=== PATIENT | male | born 1945 | race Caucasian/White ===

== ENCOUNTER 2017-05-11 08:15 | Observation (INO) | payer MEDICAID ==
--- NOTE | 2017-05-11 08:25 | Emergency Department Record ---
History of Present Illness - General Chief Complaint: Chest Pain Stated Complaint: CHEST PAIN Time Seen by Provider: 05/11/17 08:24 Source: Patient Mode of Arrival: Ambulatory Limitations: No limitations - History of Present Illness Initial Comments: The patient is here due to a 3 hour hx of L shoulder pain. The pain is sharp and aching at times. It is located in the anterior L shoulder and is not associated with nausea, NANDO, SOB, sweating or lightheadedness. The pain did wake the patient up at 5am today and did get minimally better with Advil. The patient states ROM of the L shoulder does improve the pain. He denies any recent illnesses, injuries, cough, fever, or trauma. MD Complaint: Other Onset/Timin -: Hour(s) Onset: Awoke with symptoms Pain Location: Other Pain Radiation: Other Severity: Moderate Severity scale (1-10): 7 Quality: Sharp Consistency: Constant Improves With: Nothing Worsens With: Nothing Treatment Prior to Arrival Comment:: Advil - Related Data Home Medications Medication Instructions Recorded Confirmed Last Taken Dutasteride [Avodart] 0.5 mg PO DAILY 05/29/14 05/11/17 06/07/14 Levothyroxine Sodium [Synthroid] 150 mcg PO DAILY 05/29/14 05/11/17 06/07/14 Pitavastatin Calcium [Livalo] 2 mg PO DAILY 05/29/14 05/11/17 06/07/14 RX: Aspirin Chewable 81 mg PO DAILY 05/29/14 05/11/17 06/07/14 Calcium Carb/Vitamin D3/Vit K1 2 each PO DAILY 05/11/17 05/11/17 Unknown [Citracal Soft Chew] Verapamil HCl [Verapamil ER] 240 mg PO DAILY 05/11/17 05/11/17 Unknown Allergies Allergy/AdvReac Type Severity Reaction Status Date / Time No Known Drug Allergies Allergy Verified 05/11/17 08:22 Travel Screening - Travel/Exposure Within Last 30 Days Have you traveled within the last 30 days?: No Review of Systems Constitutional: Denies: Chills, Fever Eyes: Denies: Eye discharge ENT: Denies: Congestion Respiratory: Denies: Cough, Dyspnea Past Medical History - SOCIAL HISTORY Smoking Status: Former smoker Alcohol Use: None Drug Use: None - RESPIRATORY Hx Respiratory Disorders: No - CARDIOVASCULAR Hx Cardio Disorders: Yes Hx Hypertension: Yes - NEURO Hx Neuro Disorders: No - GI Hx GI Disorders: Yes Hx of Polyps: Yes - Hx Genitourinary Disorders: Yes Hx Prostate Problems: Yes - ENDOCRINE Hx Endocrine Disorders: Yes Hx Thyroid Disease: Yes - MUSCULOSKELETAL Hx Musculoskeletal Disorders: No - PSYCH Hx Psych Problems: No - HEMATOLOGY/ONCOLOGY Hx Hematology/Oncology Disorders: No Family Medical History Any Significant Family History?: No Physical Exam - General General Appearance: Alert, Oriented x3, Cooperative, No acute distress - Head Head exam: Atraumatic, Normocephalic, Normal inspection - Eye Eye exam: Normal appearance, PERRL - Neck Neck exam: Normal inspection, Full ROM. negative: Tenderness - Respiratory Respiratory exam: Normal lung sounds bilaterally. negative: Respiratory distress - Cardiovascular Cardiovascular Exam: Regular rate, Normal rhythm, Systolic murmur (2/6 MELISSA) - GI/Abdominal GI/Abdominal exam: Soft, Normal bowel sounds. negative: Tenderness - Extremities Extremities exam: Normal inspection, Full ROM, Normal capillary refill, Tenderness (Palpation of the L anterior shoulder does reproduce his pain.). negative: Joint swelling - Neurological Neurological exam: Alert, Normal gait. negative: Abnormal gait, Motor sensory deficit - Psychiatric Psychiatric exam: negative: Anxious, Depressed Course Vital Signs 05/11/17 08:17 Temperature 97.5 F L Pulse Rate 75 Respiratory 20 Rate Blood Pressure 178/92 Pulse Ox 99 - Reevaluation(s) Reevaluation #1: The patient is doing better at this time. He denies any anterior shoulder pain and is resting comfortably. I did discuss the options with him and did recommend hospital admission due to his age and hx of congenital cardiac dz. The patient does agree to the plan. I also did discuss the case with Tiffany ARCHER) and she does accept the admission for Dr. Cesar. 05/11/17 09:42 Medical Decision Making - Data Complexity MDM Data: Labs Ordered and/or Reviewed, X-Ray Ordered and/or Reviewed, EKG Ordered and/or Reviewed - Lab Data Result diagrams: 05/11/17 08:25 05/11/17 08:25 - EKG Data -: EKG Interpreted by Me EKG: No Acute Changes (Possible old anteroseptal [place].) - Radiology Data Radiology results: Report reviewed (CXR: neg) Disposition Disposition: Admit Clinical Impression: Chest pain, atypical Disposition: Still a Patient at [facility] Decision to Admit: Admit from ER Decision to Admit Date: 05/11/17 Decision to Admit Time: :44 Accepting Physician: Tali Time Discussed w/Accepting Physician: :44 Condition: (2) Stable Instructions: Chest Pain (ED) Forms: Patient Portal Access Time of Disposition: : Quality - Quality Measures Quality Measures: N/A - Blood Pressure Screening View Details: Yes Blood Pressure Classification: Hypertensive Reading Systolic Measurement: 178 Diastolic Measurement: 92 Screening for High Blood Pressure: < Pre-Hypertensive BP, F/U Documented > [ [id number]] Pre-Hypertensive Follow-up Interventions: Follow-up with rescreen every year.
[2017-05-11] MEDS ORDERED: KETOROLAC 30 MG/ML VIAL IVP ONE (08:34)
[2017-05-11 08:39] LABS: BASO % 0.3 % (0-6); EOS % 1.5 % (0-6); GRAN % 63.3 % (47-80); HEMATOCRIT 46.5 % (42.0-52.0); HEMOGLOBIN 16.1 gm/dl (14.0-18.0); LYMPH % 26.1 % (16-45); MEAN CELL VOLUME 88.4 fl (81-97); MEAN CORPUSCULAR HEMOGLOBIN 30.6 pg (27-33); MEAN CORPUSCULAR HGB CONC 34.6 g/dl (32-36); MEAN PLATELET VOLUME 10.2 fl (7.4-10.4); MONO % 8.8 % (0-9); PLATELET COUNT 238 K/uL (130-400); RED BLOOD COUNT 5.26 M/uL (4.40-5.70); RED CELL DISTRIBUTION WIDTH 12.6 % (11.5-14.5); WHITE BLOOD COUNT W/O DIFF 11.7 K/uL (4.2-12.2)
[2017-05-11 08:53] LABS: ANION GAP 10.5 (7-16); BLOOD UREA NITROGEN 23 mg/dL (9-20); CARBON DIOXIDE 26.5 mmol/L (22-30); CREATINE PHOSPHOKINASE 100 U/L (55-170); CREATININE 1.3 mg/dL (0.66-1.25); EST GLOMERULAR FILTRATION RATE 58 ml/min; GLUCOSE,RANDOM 92 mg/dL (70-110)
[2017-05-11 09:05] LABS: TROPONIN I < 0.012 ng/mL (0.00-0.034)
[2017-05-11] MEDS ORDERED: HYDROCODONE/APAP 5/325MG TABLET PO ONE (09:10)
[2017-05-11] MEDS ORDERED: NITROGLYCERIN 0.4MG SL TABLET #25 BTL SL PRN (10:35)
[2017-05-11] MEDS: ASPIRIN 325 MG TAB ENTERIC-COATED PO SCH (11:58)
[2017-05-11] MEDS: DUTASTERIDE 0.5 MG PO SCH (11:59)
[2017-05-11] MEDS: PITAVASTATIN 2 MG PO SCH (11:59)
[2017-05-11] MEDS: VERAPAMIL HCL 240 MG TAB ER PO SCH (11:59)
[2017-05-11] MEDS: LEVOTHYROXINE SODIUM 150 MCG TABLET PO SCH (11:59)
[2017-05-11] MEDS ORDERED: HYDROCODONE/APAP 5/325MG TABLET PO PRN (13:09)
--- NOTE | 2017-05-11 13:11 | History & Physical ---
History of Present Illness - Date of Service Date of Service for History & Physical: 05/12/17 - History of Present Illness Admitting Diagnosis: 1. Atypical Chest Pain. History of Present Illness: 71 yo male admitted with left shoulder pain. PMHx of hypothyroidism, BPH, high BP, and high cholesterol. Patient experienced left shoulder pain around 5 am this morning. Patient states he woke up to go to the bathroom and noticed the pain. He took 2-3 OTC advil and went back to bed until 730. When patient woke back up, his left shoulder pain continued. Patient was brought to the ER by his . Located anteriorly. No radiation. Aggravated by nothing. Alleviated by Brohard in the ED. Upon arrival, 97.5, HR75, BP 178/92, RR 20, O2 99 RA. CBC/CMP relatively negative aside from elevated BUN of 23 and Cr of 1.3. D-dimer, CE negative. EKG: possible old anteroseptal [place]. CXR: negative. Toradol and Brohard given for left shoulder pain. Patient placed on telemetry and admitted for further cardiac work up. 05/11/17 11:00: Patients left shoulder pain resolved following Brohard. He denies any associated skin rash, SOB, fever, chills, diaphoresis, nausea, abdominal pain, change in bowel habits, cough, jaw or upper extremity pain. Patient reports h/o shingles to the left shoulder which caused similar pain, however he does not have a rash at this time. No recent hospitalization's or illness. denies family h/o cardiac disease. no previous h/o [place] or CVA. 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 He denies any changes to medications or recent travel. 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 States he lifted heavy water jugs during the day yesterday. Unsure if he slept wrong in his bed. PCP: Dr. Colunga 05/12/17: Patient up walking his room and the hallway. His should pain is present, however pain is well controlled with Brohard. He denies jaw/upper ext pain. No diaphoresis, sob, cough, fever, chill, n/v, abd pain. He admits to gas. Tolerating meals. Normal GI/ function. Patient very anxious to get home. Travel Screening - Travel/Exposure Within Last 30 Days Have you traveled within the last 30 days?: No - Travel/Exposure Within Last Year Have you traveled outside the [place] in the last year?: No - Additonal Travel Details Have you been exposed to anyone with a communicable illness?: No - Travel Symptoms Symptom Screening: None Review of Systems Constitutional: Denies: Chills, Fever, Weakness Eyes: Denies: Eye discharge ENT: Denies: Congestion Respiratory: Denies: Cough, Dyspnea, Wheezes Cardiovascular: Denies: Chest pain, Edema, Orthopnea, Palpitations Endocrine: Denies: Fatigue Gastrointestinal: Denies: Abdominal pain, Constipation, Diarrhea, Nausea, Vomiting Genitourinary: Denies: Dysuria, Hematuria Musculoskeletal: Denies: Back pain, Joint swelling Skin: Denies: Lesions, Rash Neurological: Denies: Abnormal gait, Headache, Vertigo, Weakness Past Medical History - SOCIAL HISTORY Smoking Status: Former smoker Alcohol Use: None Drug Use: None - RESPIRATORY Hx Respiratory Disorders: No - CARDIOVASCULAR Hx Cardio Disorders: Yes Hx Hypertension: Yes - NEURO Hx Neuro Disorders: No - GI Hx GI Disorders: Yes Hx of Polyps: Yes - Hx Genitourinary Disorders: Yes Hx Prostate Problems: Yes - ENDOCRINE Hx Endocrine Disorders: Yes Hx Thyroid Disease: Yes - MUSCULOSKELETAL Hx Musculoskeletal Disorders: No - PSYCH Hx Psych Problems: No - HEMATOLOGY/ONCOLOGY Hx Hematology/Oncology Disorders: No Family Medical History Any Significant Family History?: Yes Hx Resp Disorders: Mother H&P Meds/Allergies - Allergies Allergies: Allergies Allergy/AdvReac Type Severity Reaction Status Date / Time No Known Drug Allergies Allergy Verified 05/11/17 08:22 - Home Medications Home Medications Medication Instructions Recorded Confirmed Last Taken Aspirin Chewable 81 mg PO DAILY 05/29/14 05/11/17 06/07/14 Dutasteride [Avodart] 0.5 mg PO DAILY 05/29/14 05/11/17 06/07/14 Levothyroxine Sodium [Synthroid] 150 mcg PO DAILY 05/29/14 05/11/17 06/07/14 Pitavastatin Calcium [Livalo] 2 mg PO DAILY 05/29/14 05/11/17 06/07/14 Calcium Carb/Vitamin D3/Vit K1 2 each PO DAILY 07/16/17 07/16/17 Unknown [Citracal Soft Chew] Verapamil HCl [Verapamil ER] 240 mg PO DAILY 05/11/17 05/11/17 Unknown - Active Medications Active Medications: Current Medications Aspirin (Ecotrin (Ec)) 325 mg PO DAILY [facility] Last Admin: 05/11/17 11:58 Dose: 325 mg Levothyroxine Sodium (Synthroid) 150 mcg PO DAILYTHY [facility] Last Admin: 05/11/17 11:59 Dose: 150 mcg Nitroglycerin (Nitrostat 0.4mg) 0.4 mg SL Q5MIN PRN PRN Reason: CHEST PAIN Patient Own Med: (Dutasteride 0.5 Mg) 1 each PO DAILY [facility] Last Admin: 05/11/17 11:59 Dose: 1 each Patient Own Med: (Pitavastatin 2 Mg) 1 each PO DAILY [facility] Last Admin: 05/11/17 11:59 Dose: 1 each Verapamil HCl (Calan Sr) 240 mg PO DAILY [facility] Last Admin: 05/11/17 11:59 Dose: 240 mg Physical Exam - Vital Signs Vital Signs: Vital Signs - Last 24 Hrs Temp Pulse Pulse Resp BP BP Pulse Ox 05/11/17 10:42 73 16 05/11/17 10:35 18 150/83 98 05/11/17 10:07 97.8 F 75 16 135/81 96 - General General Appearance: Alert, Oriented x3, Cooperative, No acute distress Limitations: No limitations - Head Head exam: Atraumatic, Normocephalic, Normal inspection - Eye Eye exam: Normal appearance, PERRL - ENT ENT exam: Normal exam - Neck Neck exam: Normal inspection, Full ROM. negative: Tenderness - Respiratory Respiratory exam: Normal lung sounds bilaterally. negative: Respiratory distress - Cardiovascular Cardiovascular Exam: Regular rate, Normal rhythm, Systolic murmur (2/6 MELISSA) - GI/Abdominal GI/Abdominal exam: Soft, Normal bowel sounds. negative: Tenderness - Rectal Rectal exam: Deferred - exam: Deferred - Extremities Extremities exam: Normal inspection, Full ROM, Normal capillary refill, Tenderness (Palpation of the L anterior shoulder does reproduce his pain.). negative: Joint swelling - Neurological Neurological exam: Alert, Normal gait, Oriented X3. negative: Abnormal gait, Motor sensory deficit - Psychiatric Psychiatric exam: negative: Anxious, Depressed - Skin Distribution of rash: negative: RUE, LUE, RLE, LLE Description of rash: negative: Blisters, Erythematous Results - Labs Result Diagrams: 05/11/17 08:25 05/12/17 06:45 VTE H&P Assessment - Risk for VTE Risk for VTE: Yes Risk Level: Low Risk Assessment Date: 05/11/17 Risk Assessment Time: 11:00 VTE Orders Placed or Will Be Placed: Yes Plan - Detailed Diagnosis and Plan (1) Chest pain, atypical Current Visit: Yes Status: Acute Base Code: R07.89 - OTHER CHEST PAIN Comment: 05/12/17: MSK vs. pleuritic vs. cardiac vs. other? - EKG 05/11/17: suggests potential old anteroseptal infarct. EK05/12/17: T waves are more peaked. CXR negative. - CE negative x 3. Will obtain a fourth troponin. - L shoulder pain improved w/ PO Brohard - telemetry - VS Q2 x2, then Q4H - will get in touch with [facility] re EKG, patient's history and symptoms. (2) Renal insufficiency, mild Current Visit: Yes Status: Acute Base Code: N28.9 - DISORDER OF KIDNEY AND URETER, UNSPECIFIED Comment: 05/12/17: i suspect related to dehydration. renal function has now normalized. (3) Full code status Current Visit: Yes Status: Acute Base Code: Z78.9 - OTHER SPECIFIED HEALTH STATUS Comment: 05/12/17: pt is full code (4) DVT prophylaxis Current Visit: Yes Status: Acute Base Code: [id number] - Comment: 05/12/17: Lovenox 40 mg sq qd
[2017-05-11] MEDS: ACETAMINOPHEN 500 MG TABLET PO PRN ×2 (13:22→19:18)
[2017-05-11 15:22] LABS: CKMB 2.3 ug/L (0-6); TROPONIN I < 0.012 ng/mL (0.00-0.034)
[2017-05-11] MEDS ORDERED: TEMAZEPAM 15 MG CAPSULE PO PRN (18:22)
[2017-05-11 23:44] LABS: CKMB 1.8 ug/L (0-6)
[2017-05-11 23:46] LABS: TROPONIN I < 0.012 ng/mL (0.00-0.034)
[2017-05-12] MEDS: LEVOTHYROXINE SODIUM 150 MCG TABLET PO SCH (06:52)
[2017-05-12] MEDS: ACETAMINOPHEN 500 MG TABLET PO PRN (06:55)
[2017-05-12 07:09] LABS: ANION GAP 8.2 (7-16); BLOOD UREA NITROGEN 20 mg/dL (9-20); CARBON DIOXIDE 27.8 mmol/L (22-30); CREATININE 1.2 mg/dL (0.66-1.25); EST GLOMERULAR FILTRATION RATE > 60 ml/min; GLUCOSE,RANDOM 110 mg/dL (70-110)
--- NOTE | 2017-05-12 07:28 | RADIOLOGY REPORT ---
EXAM: CHEST, TWO VIEWS HISTORY: ACUTE LEFT SHOULDER PAIN. TECHNIQUE: Two views of the chest were obtained. Comparison: None. FINDINGS: Probable small calcified granuloma right mid lung. The lungs are clear. The cardiac silhouette, diaphragm, and osseous structures are unremarkable for age. IMPRESSION: NEGATIVE CHEST EXAMINATION. JOB NUMBER: [id number] MTDD
[2017-05-12] MEDS: ASPIRIN 325 MG TAB ENTERIC-COATED PO SCH (09:20)
[2017-05-12] MEDS: VERAPAMIL HCL 240 MG TAB ER PO SCH (09:21)
[2017-05-12] MEDS: DUTASTERIDE 0.5 MG PO SCH (09:22)
[2017-05-12] MEDS: PITAVASTATIN 2 MG PO SCH (09:22)
--- NOTE | 2017-05-12 11:09 | Discharge Summary ---
Providers Discharge Summary Date: 05/12/17 Date of admission: 05/11/17 09:56 Expected Date of Discharge: 05/12/17 Attending physician: NICKO CARRERA Primary care physician: YESSI GARCÍA D.O. Physical Exam - Vital Signs Vital Signs: Vital Signs - Last 24 Hrs Temp Pulse Pulse Resp BP Pulse Ox 05/12/17 09:00 97.6 F 68 18 136/68 95 05/12/17 08:06 70 16 05/12/17 05:30 97.6 F 64 18 132/71 96 05/12/17 00:00 99.0 F 72 18 122/71 95 05/11/17 21:00 69 16 05/11/17 20:00 97.9 F 62 18 124/66 95 05/11/17 16:31 98.5 F 65 18 131/77 96 05/11/17 12:35 98.0 F 72 18 123/71 98 - General General Appearance: Alert, Oriented x3, Cooperative, No acute distress Limitations: No limitations - Head Head exam: Atraumatic, Normocephalic, Normal inspection - Eye Eye exam: Normal appearance, PERRL - ENT ENT exam: Normal exam - Neck Neck exam: Normal inspection, Full ROM. negative: Tenderness - Respiratory Respiratory exam: Normal lung sounds bilaterally. negative: Respiratory distress - Cardiovascular Cardiovascular Exam: Regular rate, Normal rhythm, Systolic murmur (2/6 MELISSA) - GI/Abdominal GI/Abdominal exam: Soft, Normal bowel sounds. negative: Tenderness - Rectal Rectal exam: Deferred - exam: Deferred - Extremities Extremities exam: Normal inspection, Full ROM, Normal capillary refill, Tenderness (Palpation of the L anterior shoulder does reproduce his pain.). negative: Joint swelling - Neurological Neurological exam: Alert, Normal gait, Oriented X3. negative: Abnormal gait, Motor sensory deficit - Psychiatric Psychiatric exam: negative: Anxious, Depressed - Skin Distribution of rash: negative: RUE, LUE, RLE, LLE Description of rash: negative: Blisters, Erythematous Hospitalization - Hospitalization Admission Diagnosis: 1. Atypical Chest Pain. - Problem List/Discharge Diagnosis (1) Chest pain, atypical Current Visit: Yes Status: Acute Base Code: R07.89 - OTHER CHEST PAIN Comment: 05/12/17: MSK vs. pleuritic vs. cardiac vs. other? - EKG 05/11/17: suggests potential old anteroseptal infarct. EK05/12/17: T waves are more peaked. CXR negative. - CE negative x 4. - L shoulder pain reproducible on exam. improved w/ PO Delta - I spoke with Dr. Crouch re patient's EKG findings. Out patient stress test with Dr. Crouch has been set up for Friday as recommended. - Follow up with Dr. García FridayMay 13 at 330 - return to the ER re any SOB, CP, jaw or upper extremity pain, sweating, dizziness or lightheadedness. (2) Full code status Current Visit: Yes Status: Acute Base Code: Z78.9 - OTHER SPECIFIED HEALTH STATUS Comment: 05/12/17: pt remained full code - Hospitalization Course Disposition: Home, Self-Care Hospital Course: 71 yo male admitted with left shoulder pain. PMHx of hypothyroidism, BPH, high BP, and high cholesterol. Patient experienced left shoulder pain around 5 am this morning. Patient states he woke up to go to the bathroom and noticed the pain. He took 2-3 OTC advil and went back to bed until 730. When patient woke back up, his left shoulder pain continued. Patient was brought to the ER by his . Located anteriorly. No radiation. Aggravated by nothing. Alleviated by Delta in the ED. Upon arrival, 97.5, HR75, BP 178/92, RR 20, O2 99 RA. CBC/CMP relatively negative aside from elevated BUN of 23 and Cr of 1.3. D-dimer, CE negative. EKG: possible old anteroseptal [place]. CXR: negative. Toradol and Delta given for left shoulder pain. Patient placed on telemetry and admitted for further cardiac work up. 05/11/17 11:00: Patients left shoulder pain resolved following Delta. He denies any associated skin rash, SOB, fever, chills, diaphoresis, nausea, abdominal pain, change in bowel habits, cough, jaw or upper extremity pain. Patient reports h/o shingles to the left shoulder which caused similar pain, however he does not have a rash at this time. No recent hospitalization's or illness. denies family h/o cardiac disease. no previous h/o [place] or CVA. 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 He denies any changes to medications or recent travel. 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 States he lifted heavy water jugs during the day yesterday. Unsure if he slept wrong in his bed. PCP: Dr. García 05/12/17: Patient up walking his room and the hallway. His should pain is present, however pain is well controlled with Delta. He denies jaw/upper ext pain. No diaphoresis, sob, cough, fever, chill, n/v, abd pain. He admits to gas. Tolerating meals. Normal GI/ function. Patient very anxious to get home. Procedures: Cardiology Procedures 05/12/17 10:41 Stress EKG/STD Treadmill ONCE Condition at Discharge: (2) Stable Discharge Medications - Discharge Medications Home Medications: Ambulatory Orders Aspirin Chewable 81 mg PO DAILY 05/29/14 [Last Taken 06/07/14] Dutasteride [Avodart] 0.5 mg PO DAILY 05/29/14 [Last Taken 06/07/14] Levothyroxine Sodium [Synthroid] 150 mcg PO DAILY 05/29/14 [Last Taken 06/07/14] Pitavastatin Calcium [Livalo] 2 mg PO DAILY 05/29/14 [Last Taken 06/07/14] Calcium Carb/Vitamin D3/Vit K1 [Citracal Soft Chew] 2 each PO DAILY 05/11/17 [ Last Taken Unknown] Verapamil HCl [Verapamil ER] 240 mg PO DAILY 05/11/17 [Last Taken Unknown] Discharge Plan - Discharge Instructions Activity at Discharge: Other (rest until stress test/cardiology visit Friday ) Diet at Discharge: Other (cardiac diet) Instructions: Chest Pain (ED), Cardiac Stress Test (DC) Additional Instructions: Follow up with Dr García tomorrow at 3:15. Outpatient stress test on Friday. They will call you with the time. Activity and diet as tolerated. Resume home meds Return to the ED if having chest pain or worsening shoulder pain Delta 5mg-1 tablet every 4-6 hours as needed for pain
== END 2017-05-12 11:31 | disposition home or self-care (01) ==
LOC: ER 08:15 → MEDSURG 09:56
PROVIDERS: ADMIT Family Medicine; ATTEND Family Medicine
DX: R07.89 Other chest pain (principal); E03.9 Hypothyroidism, unspecified; E78.00 Pure hypercholesterolemia, unspecified; I10 Essential (primary) hypertension; N28.9 Disorder of kidney and ureter, unspecified
CPT/HCPCS: 71020; 80048; 82550; 82553; 84484; 85025; 85379; 93005; 93010; 93041; 96374; 99220; 99285; J1885